=== PATIENT | female | born 1970 | race Caucasian/White ===

== ENCOUNTER 2016-10-08 07:58 | Outpatient (CLI) | payer BC ==
[~2016-10-08 07:58] MED LIST: FERRIC CARBOXYMALTOSE 750 MG in NORMAL SALINE 250 ML IV PRN; NORMAL SALINE 250 ML IV PRN
[2016-10-08 08:17] VITALS: BP 118/76
== END 2016-10-08 09:13 | disposition home or self-care (01) ==
LOC: II 07:58 → 5TH 08:00 → II 09:13
PROVIDERS: ATTEND Internal Medicine
PROC: 3E043GC Introduction of Other Therapeutic Substance into Central Vein, Percutaneous Approach (ICD-10-PCS; principal; 2016-10-08)
DX: D50.9 Iron deficiency anemia, unspecified (principal); K90.9 Intestinal malabsorption, unspecified
CPT/HCPCS: 96365; J7050; J1439

== ENCOUNTER 2016-10-15 08:01 | Outpatient (CLI) | payer BC ==
[2016-10-15 08:15] VITALS: BP 128/69
== END 2016-10-15 09:11 | disposition home or self-care (01) ==
LOC: II 08:01 → 5TH 08:02 → II 09:11
PROVIDERS: ATTEND Internal Medicine
PROC: 3E033GC Introduction of Other Therapeutic Substance into Peripheral Vein, Percutaneous Approach (ICD-10-PCS; principal; 2016-10-15)
DX: D50.9 Iron deficiency anemia, unspecified (principal); K90.9 Intestinal malabsorption, unspecified
CPT/HCPCS: 96365; J7050; J1439